=== PATIENT | male | born 1950 | race Caucasian/White ===

== ENCOUNTER 2023-06-10 10:25 | Emergency (ER) | payer MEDICARE, BC ==
[2023-06-10 11:48] LABS: BASOPHILS ABSOLUTE AUTO 0.04 K/mm3 (0.01-0.08); BASOPHILS PERCENT AUTO 0.6 % (0.1-1.2); EOSINOPHILS ABSOLUTE AUTO 0.16 K/mm3 (0.04-0.54); EOSINOPHILS PERCENT AUTO 2.5 (0.8-7.0); HEMATOCRIT 52.1 % (40.1-51.0); IMMATURE GRAN ABSOLUTE AUTO 0.03 K/mm3 (0.00-0.10); IMMATURE GRAN PERCENT AUTO 0.5 % (<=1.0); LYMPHOCYTES ABSOLUTE AUTO 2.19 K/mm3 (1.32-3.57); LYMPHOCYTES PERCENT AUTO 34.1 % (21.8-53.1); MEAN CORPUSCULAR HEMOGLOBIN 24.9 pg (25.7-32.2); MEAN CORPUSCULAR HGB CONC 30.7 g/dl (32.2-35.5); MEAN PLATELET VOLUME 9.6 fl (9.4-12.3); MONOCYTES ABSOLUTE AUTO 0.84 K/mm3 (0.30-0.82); MONOCYTES PERCENT AUTO 13.1 % (5.3-12.2); NEUTROPHILS ABSOLUTE AUTO 3.17 K/mm3 (1.78-5.38); NEUTROPHILS PERCENT AUTO 49.2 % (34.0-67.9); PLATELET COUNT,PLT 166 K/mm3 (163-337); RED BLOOD CELL COUNT 6.43 M/mm3 (4.63-6.08); WHITE BLOOD CELL COUNT,WBC 6.43 K/mm3 (4.23-9.07)
[2023-06-10 12:00] LABS: A/G RATIO 1.2 (1-2); ALANINE AMINOTRANSFERASE,ALT 34 U/L (16-63); ALBUMIN 3.7 g/dl (3.4-5.0); ALKALINE PHOSPHATASE 58 U/L (46-116); ANION GAP 10.4 (5-15); ASPARTATE AMNIOTRANSFERASE,AST 24 U/L (15-37); BILIRUBIN TOTAL 0.9 mg/dL (0.2-1.0); BLOOD UREA NITROGEN,BUN 15 mg/dL (7-18); BUN/CREATININE RATIO 12.5 (14-18); C-REACTIVE PROTEIN <0.2 mg/dL (<1.0); CALCIUM 8.6 mg/dL (8.5-10.1); CARBON DIOXIDE,CO2 31 mEq/L (21-32); CHLORIDE,CL 103 mEq/L (98-107); CREATININE 1.2 mg/dL (0.7-1.3); EST CRCL DRUG DOSING (CG) 56.61 mL/min; ESTIMATED GFR 64 mL/min (>60); GLUCOSE RANDOM 86 mg/dL (70-99); MAGNESIUM 1.8 mg/dL (1.8-2.4); POTASSIUM,K 4.4 mEq/L (3.5-5.1); PROTEIN TOTAL,TP 6.8 g/dl (6.4-8.2); SODIUM,NA 140 mEq/L (136-145); TROPONIN I HIGH SENSITIVITY 14 pg/mL (<=76)
[2023-06-10] MEDS ORDERED: Sodium Chloride 0.9% 1,000 ML IV ONE (12:40)
== END 2023-06-10 15:52 | disposition home or self-care (01) ==
LOC: JD.ED 10:25
DX: F10.129 Alcohol abuse with intoxication, unspecified (principal); I95.1 Orthostatic hypotension; I48.91 Unspecified atrial fibrillation; I10 Essential (primary) hypertension; M19.90 Unspecified osteoarthritis, unspecified site; Z88.8 Allergy status to other drugs, medicaments and biological substances; Z87.891 Personal history of nicotine dependence
CPT/HCPCS: 36415; 70450; 80053; 82947; 83735; 84443; 84484; 85025; 86140; 93005; 96360; 96361; 99284; J7030